=== PATIENT | female | born 1965 | race Caucasian/White ===

== ENCOUNTER → 2017-12-19 12:43 | Outpatient (CLI) | payer MEDICAID | END | disposition home or self-care (01) | LOC: D.CT 12:43 | DX: R07.9 Chest pain, unspecified (principal) ==

== ENCOUNTER → 2018-07-02 16:36 | Outpatient (CLI) | payer MEDICAID | END | disposition home or self-care (01) | LOC: D.CT 16:30 | DX: R31.21 Asymptomatic microscopic hematuria (principal) ==

== ENCOUNTER → 2019-06-24 17:33 | Outpatient (CLI) | payer OTHER | END | disposition home or self-care (01) | LOC: D.LABREF 17:33 | PROVIDERS: ATTEND Urology | DX: R31.9 Hematuria, unspecified (principal) ==

== ENCOUNTER 2019-09-03 06:20 | Day surgery (SDC) | payer OTHER ==
[~2019-09-03] VITALS: Ht 170.2 cm; Wt 108.4 kg
[~2019-09-03 06:20] MED LIST: AMBIEN10 MG PO; BRINTELLIX10 MG PO; CARBINOXAMINE PO; FLUTICASONE PRO16 GM NASAL; HYDROCODON-ACE1 EA10 PO; LEVOTHYROXINE50 MCG PO; NORVASC5 MG PO; PEPCID AC20 MG PO; VITAMIN D250000 UNIT PO; ZANAFLEX4 MG PO
[2019-09-03 07:21] VITALS: BP 116/65; Ht 170.2 cm; Wt 108.4 kg
--- NOTE | 2019-09-03 09:52 | NUR ---
0936-REC'D FROM SURGERY. ALERT AND AWAKE. DENEIS PAIN. IV PATENT TO LEFT HAND AT [facility].VSS. RIMSO INJECTED PT IS ROLLING FROM SIDE TO SIDE. REVIEWED DISCHARGE CRITERIA. CL IN EASY REACH. VSS.
--- NOTE | 2019-09-03 09:53 | NUR ---
0945-FULL LIQUID TRAY TO ROOM. CONTINUE TO ROLL FROM SIDE TO SIDE. NO DESIRE TO USE RESTROOM AT THIS TIME. WOULD LIKE TO ROLL FROM SIDE TO SIDE LONGER. CL IN EASY REACH. SPOUSE AT BEDSIDE. DENIES PAIN. IV PATENT AT [facility].
--- NOTE | 2019-09-03 10:36 | NUR ---
1020- PT AMBULATED TO RESTROOM AND URINATED X 2 WITHOUT COMPLICATIONS. VSS. DENIES PAIN. TOLERATED FULL LIQUID TRAY.REMOVED IV FROM LEFT HAND WITH CATH INTACT,DISPOSED INTO SHARPS. COVERED SITE WITH BANDAID. REVIEWED POST OPERATIVE FOLLOW UP AND DISCHARGE INSTRUCTIONS. VERBALIZED UNDERSTANDING WITHOUT QUESTIONS OR CONCERNS.
--- NOTE | 2019-09-03 10:39 | NUR ---
1031-PT DRESSED. ESCORTED OUT VIA W/C BY VOLUNTEER WITH FATHER AWAITING TO DRIVE HOME. DISCHARGE INSTRUCTIONS IN HAND.
--- NOTE | 2019-09-03 11:36 | OP ---
PATIENT NAME: MARTÍN STAHL MEDICAL RECORD: [id number] :69 LOCATION:D.OPS ADMISSION DATE: SURGEON: TANNER CARRILLO MD DATE OF OPERATION: 09/03/2019 SURGEON: Tanner Carrillo MD ANESTHESIA: TIVA by Miguel Torres CRNA DIAGNOSES: Microscopic hematuria, interstitial cystitis. PROCEDURES: Cystoscopy, hydrodistention, and intravesical Rimso instillation. FINDINGS: On cystoscopy, single ureteral orifices bilaterally. No bladder tumors. Bladder is inflamed diffusely. BLOOD LOSS: None. CLINICAL HISTORY: This is a 54-year-old female, G3, P3, A0, who has a chief complaint of microscopic hematuria for the past 2 years. She also has issues with right-sided flank pain, suprapubic pain, and symptoms of ongoing urinary tract infections. Her urine cultures have shown no growth. CT scan on 07/02/2018 showed a 1 mm stone in the right kidney, which was nonobstructive. Otherwise, the CT scan was normal. She comes today to have cystoscopy to complete the microscopic hematuria workup. I suspect that she has interstitial cystitis and on discussing the situation with her, she wishes to have hydrodistention and intravesical Rimso if inflammation is seen. 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 DESCRIPTION OF PROCEDURE: The patient was given IV sedation. She was placed into lithotomy position and prepped and draped. A 17-St Lucian cystoscope with 30-degree lens was used for visualization. Findings are as outlined above. The bladder was hydrodistended to 600 mL of fluid and the fluid was kept in for 2 minutes. The bladder was then emptied through the scope sheath, and then the scope was removed. We then inserted a 16-St Lucian red rubber catheter into the bladder. Through the lumen of the catheter, we instilled 50 mL of Rimso solution. Once the solution was in the bladder. The catheter was removed. The patient will hold the Rimso in the bladder for 15 minutes and then void it out. I will see her in followup in 3 weeks' time. TRANSINT:[id number] Voice Confirmation ID: [id number] DOCUMENT ID: [id number] TANNER CRARILLO MD at 1136 CC: [id number] DICTATION DATE: 09/03/19 0933 CREAM SEPARATOR OPERATOR: 09/03/19 1125 DEP SDC 09/03/19 [facility] [address] [facility] [place] [address]
== END 2019-09-03 10:31 | disposition home or self-care (01) ==
LOC: D.OPS 06:20 → D.PAN 08:20 → D.OPS 09:15 → D.PAN 10:05 → D.OPS 10:31
PROVIDERS: ATTEND Urology
DX: N30.11 Interstitial cystitis (chronic) with hematuria (principal)